=== PATIENT | male | born 1965 | race African-American/Black ===

== ENCOUNTER → 2019-04-16 | Outpatient (CLI) | payer OTHER ==
--- NOTE | 2019-04-16 10:41 | RAD ---
EXAM: Chest, 2 views. HISTORY: Congestive heart failure. COMPARISON: None. FINDINGS: 2 views of the chest are obtained. There is no infiltrate, pleural effusion or pneumothorax. The heart is normal in size. There is a healed left rib fracture. IMPRESSION: No acute pulmonary finding. Electronically signed by: Patricia Story MD (04/16/2019 10:39 AM) [email or web address]
== END ==
LOC: RAD 09:11
PROVIDERS: ATTEND Family Medicine
DX: I50.9 Heart failure, unspecified (principal)
CPT/HCPCS: 71046